=== PATIENT | female | born 1980 | race Caucasian/White ===

== ENCOUNTER 2021-06-28 12:15 | Outpatient (CLI) | payer OTHER | END 2021-06-28 12:29 | disposition home or self-care (01) | LOC: SONOGRAMA 12:15 | DX: E03.9 Hypothyroidism, unspecified (principal) ==

== ENCOUNTER 2024-06-08 06:19 | Day surgery (SDC) | payer OTHER ==
[2024-06-08] MEDS ORDERED: fentaNYL CITRATE 50 MCG/ML AMPUL IV PUSH ONE (10:45)
[2024-06-08] MEDS ORDERED: DIPHENHYDRAMINE HCL 50 MG/ML VIAL 1ML IV ONE ×2 (10:45)
[2024-06-08] MEDS ORDERED: MIDAZOLAM HCL 2 MG/2 ML VIAL IV ONE (10:45)
== END 2024-06-08 13:00 | disposition home or self-care (01) ==
LOC: AMB-ENDOS 06:19
PROVIDERS: ATTEND Internal Medicine
DX: R19.4 Change in bowel habit (principal)